=== PATIENT | female | born 1970 | race Caucasian/White ===

== ENCOUNTER → 2023-10-20 15:53 | Outpatient (REF) | payer BC, SELFPAY | LOC: HWWDC 15:53 | PROVIDERS: ATTENDING PHYSICIAN Obstetrics & Gynecology | DX: Z12.31 Encounter for screening mammogram for malignant neoplasm of breast (principal) | CPT/HCPCS: 77063; 77067 ==

== ENCOUNTER → 2024-11-27 16:44 | Outpatient (REF) | payer BC, SELFPAY | LOC: WDC 16:44 | PROVIDERS: ATTENDING PHYSICIAN Obstetrics & Gynecology; FAMILY PHYSICIAN Nurse Practitioner Adult Health | DX: Z12.31 Encounter for screening mammogram for malignant neoplasm of breast (principal) | CPT/HCPCS: 77063; 77067 ==